=== PATIENT | female | born 1995 | race Native Hawaiian/Other Pacific Islander ===

== ENCOUNTER 2017-09-03 01:34 | Emergency (ER) | payer OTHER ==
[2017-09-03 01:42] VITALS: BMI 22.3
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
[2017-09-03 02:31] LABS: BASO # 0.1 K/uL (0.0-0.2); EOS # 0.1 K/uL (0.0-0.7); HEMOGLOBIN 13.1 g/dL (12.0-16.0); MEAN CELL VOLUME 89.7 fl (81.0-99.0); MEAN CORPUSCULAR HEMOGLOBIN 28.8 pg (27.0-31.0); MEAN PLATELET VOLUME 7.1 fl (7.2-11.7); MONO # 0.4 K/uL (0.0-0.8); MONO % 5.1 % (0.0-10.0); NEUT # 3.8 K/uL (1.8-7.0); NEUT % 50.9 % (50.0-75.0); NRBC % 0.1 % (0.0-0.0); RBC 4.56 Mil/uL (3.80-5.20); RED CELL DISTRIBUTION WIDTH 12.8 % (11.5-14.5); WHITE BLOOD COUNT 7.4 K/uL (4.8-10.8)
[2017-09-03 02:43] LABS: ALB/GLOB RATIO 1.4 (1.0-2.1); ALT/SGPT 33 U/L (9-52); AST/SGOT 33 U/L (14-36); BLOOD UREA NITROGEN 18 mg/dl (7-17); CALCIUM 9.1 mg/dL (8.4-10.2); GFR AFRICAN-AMERICAN > 60; GFR NON-AFRICAN AMERICAN > 60
--- NOTE | 2017-09-03 07:34 | ED PDOC ---
- Laboratory Results Result Diagrams: 09/03/17 02:20 09/03/17 02:20 - ECG O2 Sat by Pulse Oximetry: 96 (RA) Medical Decision Making Medical Decision Makin:00 Patient endorsed to me by Dr. Templeton pending sobriety. Scribe Attestation: Documented by Bernadette Estrada, acting as a scribe for Batsheva Chacko MD. Provider Scribe Attestation: All medical record entries made by the Scribe were at my direction and personally dictated by me. I have reviewed the chart and agree that the record accurately reflects my personal performance of the history, physical exam, medical decision making, and the department course for this patient. I have also personally directed, reviewed, and agree with the discharge instructions and disposition. 8.45a - patient awake. ambulatory with steady gait. Patient declined x-ray of the ankle. Disposition Doctor Will See Patient In The: Office Counseled Patient/Family Regarding: Diagnosis, Need For Followup - Clinical Impression Clinical Impression: Alcohol abuse with intoxication - POA Present On Arrival: Falls Or Trauma - Disposition Disposition: Discharged/Transfer to Law Enforcement Disposition Time: 08:25 Condition: IMPROVED Additional Instructions: Patient is medically cleared for incarceration. Instructions: Alcohol Intoxication (ED) Forms: [employer] (Green[place]ic)
[2017-09-03 07:38] VITALS: BP 102/43; PULSE 83; RESP 16
[2017-09-03 08:58] VITALS: O2SAT 96
== END 2017-09-03 09:29 | disposition home or self-care (01) ==
LOC: H.ER 01:34
DX: F10.129 Alcohol abuse with intoxication, unspecified (principal)
CPT/HCPCS: 80053; 80320; 82948; 85025; 96372; 99285; J1630; J2060